=== PATIENT | female | born 1975 | race American Indian/Alaskan Native ===

== ENCOUNTER 2021-12-20 11:19 | Emergency (ER) | payer MEDICAID, OTHER ==
[2021-12-20 11:40] VITALS: BP 148/95
[2021-12-20] MEDS ORDERED: ASPIRIN 325 MG TAB PO ONE (11:43)
--- NOTE | 2021-12-21 11:32 | Electrocardiograph Report ---
[facility] Test Date: 2021-12-20 Test Time: 11:29:38 Pat Name: JAZMÍN JONES Department: Room: Gender: F [employer]bling Machine Operator: LUCIA : 1975 Requested By: ED DOC Order Number: [id number] Reading MD: Celso Hurley Measurements Intervals [place] Rate: 91 P: 65 RI: 141 QRS: 45 QRSD: 76 T: 4 QT: 375 QTc: 462 Interpretive Statements Sinus rhythm Probable left atrial enlargement No previous ECG available for comparison Electronically Signed On 12-21-2021 10:42:55 EDT by Celso Hurley
== END 2021-12-20 14:00 | disposition left against medical advice (07) ==
LOC: ED 11:19
DX: R07.89 Other chest pain (principal); Z53.21 Procedure and treatment not carried out due to patient leaving prior to being seen by health care provider
CPT/HCPCS: 93005